=== PATIENT | male | born 1975 | race Caucasian/White ===

== ENCOUNTER 2020-06-02 14:45 | Inpatient (IN) | payer OTHER ==
[~2020-06-02 14:45] MED LIST: Iopamidol-370 76% 500 ML 1 ML ONE
[2020-06-02] MEDS ORDERED: Dexamethasone 10 MG/ML VIAL ONE (15:16)
--- NOTE | 2020-06-02 15:18 | RAD ---
EXAM: CHEST ONE VIEW HISTORY: Shortness of breath in a patient with Covid positive test. COMPARISON: None FINDINGS: Cardiac silhouette is magnified by projection. Pulmonary vasculature is within normal limits. There a re patchy parenchymal as well as interstitial opacities seen in the right upper lung zone, midlung zones, and at each lung base demonstrating a radiographic appearance which can be seen with Covid pne umonia. The osseous structures are intact. IMPRESSION: Covid pneumonia.
[2020-06-02 15:46] LABS: #Eosinphils 0.1 thou/uL (0.0-0.7); #Lymphocytes 1.5 thou/uL (1.20-3.40); #Monocytes 0.6 thou/uL (0.11-0.59); %Basophils 0.2 % (0.0-1.0); %Eosinophils 1.3 % (0.0-10.0); %Lymphocytes 16.3 % (21.0-51.0); %Monocytes 6.6 % (0.0-10.0); %Neutrophils 75.5 % (42.0-75.0); Hemoglobin 15.3 g/dL (14.0-18.0); Mean Corpuscular HGB CONC 33.2 g/dL (32.0-36.0); Mean Corpuscular Hemoglobin 29.8 pg (27.0-31.0); Mean Corpuscular Volume 89.8 fL (78.0-98.0); Mean Platelet Volume 8.7 fL (7.4-10.4); Platelet Count 269 thou/uL (130-400); RBC Distribution Width 11.8 % (11.5-14.5); Red Blood Cell (RBC) Count 5.13 mill/uL (4.70-6.10); White Blood Cell (WBC) Count 9.2 thou/uL (4.8-10.8)
[2020-06-02] MEDS ORDERED: cefTRIAXone\\ROCEPHIN 2 GM VIAL ONE (15:51)
[2020-06-02] MEDS ORDERED: Azithromycin 500 MG VIAL ONE (15:51)
[2020-06-02 15:53] LABS: PTT 25.9 sec (22.9-36.1); Prothrombin Time 12.9 sec (12.0-14.7)
[2020-06-02 16:15] LABS: ALT (SGPT) 116 U/L (8-55); AST (SGOT) 67 U/L (5-34); Albumin 3.7 g/dL (3.5-5.0); Alkaline Phosphatase 110 U/L (40-110); Anion Gap 17 mmol/L (10-20); BUN (Urea Nitrogen) 16 mg/dL (8.9-20.6); Calc. Creatinine Clearance 0 mL/min (70-130); Calcium 8.3 mg/dL (7.8-10.44); Carbon Dioxide 24 mmol/L (22-29); Chloride 104 mmol/L (98-107); Globulin 3.2 g/dL (2.4-3.5); Glucose 104 mg/dL (70-105); Lipase 32 U/L (8-78); Potassium 3.8 mmol/L (3.5-5.1); Protein, Total 6.9 g/dL (6.0-8.3); Sodium 141 mmol/L (136-145)
--- NOTE | 2020-06-02 18:08 | CT ---
CTA THORAX WITH CONTRAST: 06/02/20 (Computed Tomographic Angiography, chest(noncoronary) with contrast material, and image postprocessin g) (PE protocol) HISTORY: 44-year-old COVID-19 positive male with chest pain and dyspnea with fever and chills with productive cough. COMPARISON: None. TECHNIQUE: IV injection of iodinated contrast: Isovue Scan acquisition timing attempted to coincide with iodinated contrast bolus reaching maximal density in pulmonary arteries. 3D MIP reconstructions. FINDINGS: Large number of small and moderate sized patchy infiltrates consisting mostly of consolidations, thro ughout the bilateral upper lobes, lower lobes, and right middle lobe, both peripheral and central. In the intervening spaces between the consolidations, there are faint ground glass changes. No pleural effusion, pneumothorax, thoracic aortic aneurysm or dissection, or pericardial effusion. No pulmonary thromboembolism identified. IMPRESSION: 1. Moderately severe bilateral COVID-19 pneumonia. 2. No pulmonary thromboembolism identified. tj[] POS: JIN
--- NOTE | 2020-06-02 18:21 | PDOC.HHP ---
Hospitalist HPI SOB History of Present Illness: Mr. Bragg is a 44-year-old male with past medical history of hypertension who presents emergency room for shortness of breath. Patient reports he was diagnosed with Covid on May 24 and that is the same day his symptoms began. Patient reports his symptoms began with subjective fevers, cough, myalgias. Over the past 2 days he has noticed worsening shortness of breath. He denies chest pain, abdominal pain, nausea vomiting diarrhea. In emergency room initial vital signs 111/89, 89, 32, 99.0, 94% on 3 L nasal cannula. Chest x-ray showed bilateral multifocal pneumonia. WBC 9.2, H/H 15.3/46.1, platelet 269. BUN/CR 16/0.86, sodium 141, potassium 3.8, glucose 104. Initial troponin 0 010, lactic acid 1.2, lipase 32. Patient mild transaminitis. EKG showed normal sinus rhythm with PACs. Past History: PMHx: Hypertension PSHx: No surgical history FHx past family history of cardiac disease and patient's mother Social: Non-smoker, no alcohol or drug use Hospitalist HPI ROS Constitutional: reports: fever, weakness, malaise. denies: chills, sweats, other Eyes: denies: pain, vision change, conjunctivae inflammation, eyelid inflammation, redness, other ENT: denies: ear pain, ear discharge, nose pain, nose discharge, nose congestion, mouth pain, mouth swelling, throat pain, throat swelling, other Respiratory: reports: cough, shortness of breath, SOB with excertion. denies: dry, hemoptysis, pleuritic pain, sputum, wheezing, other Cardiovascular: denies: chest pain, palpitations, orthopnea, paroxysmal noc. dyspnea, edema, light headedness, other Gastrointestinal: denies: nausea, vomiting, abdominal pain, diarrhea, constipation, melena, hematochezia, other Genitourinary: denies: dysuria, frequency, incontinence, hematuria, retention, other Musculoskeletal: denies: neck pain, shoulder pain, arm pain, back pain, hand pain, leg pain, foot pain, other Skin: denies: rash, lesions, bethanie, bruising, other Neurological: denies: weakness, numbness, incoordination, change in speech, confusion, seizures, other Hospitalist Exam General Appearance: NAD, awake alert, ill appearing Eye: PERRL, anicteric sclera ENT: normocephalic atraumatic, no oropharyngeal lesions, moist mucosa Neck: supple, symmetric, no JVD, no thyromegaly, no lymphadenopathy, no carotid bruit Heart: RRR, no murmur, no gallops, no rubs, normal peripheral pulses Respiratory: CTAB, no wheezes, no rales, no ronchi, normal chest expansion, no tachypnea, normal percussion Gastrointestinal: soft, non-tender, non-distended, normal bowel sounds, no palpable masses, no hepatomegaly, no splenomegaly, no bruit Extremities: no cyanosis, no clubbing, no edema Skin: normal turgor, no lesions, no rashes Neurological: cranial nerve grossly intact, normal sensation to touch, no weakness, no focal deficits, no new deficit Musculoskeletal: normal tone, normal strength, no muscle wasting Psychiatric: normal affect, normal behavior, A&O x 3 Hospitalist Results Result Diagrams: 06/02/20 15:37 06/02/20 15:37 Lab results: Laboratory Last Values WBC 9.2 thou/uL (4.8-10.8) 06/02/20 15:37 RBC 5.13 mill/uL (4.70-6.10) 06/02/20 15:37 Hgb 15.3 g/dL (14.0-18.0) 06/02/20 15:37 Hct 46.1 % (42.0-52.0) 06/02/20 15:37 MCV 89.8 fL (78.0-98.0) 06/02/20 15:37 MCH 29.8 pg (27.0-31.0) 06/02/20 15:37 MCHC 33.2 g/dL (32.0-36.0) 06/02/20 15:37 RDW 11.8 % (11.5-14.5) 06/02/20 15:37 Plt Count 269 thou/uL (130-400) 06/02/20 15:37 MPV 8.7 fL (7.4-10.4) 06/02/20 15:37 Neutrophils % 75.5 % (42.0-75.0) H 06/02/20 15:37 Lymphocytes % 16.3 % (21.0-51.0) L 06/02/20 15:37 Monocytes % 6.6 % (0.0-10.0) 06/02/20 15:37 Eosinophils % 1.3 % (0.0-10.0) 06/02/20 15:37 Basophils % 0.2 % (0.0-1.0) 06/02/20 15:37 Neutrophils # 7.0 thou/uL (1.40-6.50) H 06/02/20 15:37 Lymphocytes # 1.5 thou/uL (1.20-3.40) 06/02/20 15:37 Monocytes # 0.6 thou/uL (0.11-0.59) H 06/02/20 15:37 Eosinophils # 0.1 thou/uL (0.0-0.7) 06/02/20 15:37 Basophils # 0.0 thou/uL (0.0-0.2) 06/02/20 15:37 PT 12.9 sec (12.0-14.7) 06/02/20 15:37 INR 1.0 06/02/20 15:37 APTT 25.9 sec (22.9-36.1) 06/02/20 15:37 Sodium 141 mmol/L (136-145) 06/02/20 15:37 Potassium 3.8 mmol/L (3.5-5.1) 06/02/20 15:37 Chloride 104 mmol/L (98-107) 06/02/20 15:37 Carbon Dioxide 24 mmol/L (22-29) 06/02/20 15:37 Anion Gap 17 mmol/L (10-20) 06/02/20 15:37 BUN 16 mg/dL (8.9-20.6) 06/02/20 15:37 Creatinine 0.86 mg/dL (0.7-1.3) 06/02/20 15:37 Estimated GFR (MDRD) Greater than 90 06/02/20 15:37 Glucose 104 mg/dL (70-105) 06/02/20 15:37 Lactic Acid 1.2 mmol/L (0.5-2.2) 06/02/20 15:37 Calcium 8.3 mg/dL (7.8-10.44) 06/02/20 15:37 Total Bilirubin 1.0 mg/dL (0.2-1.2) 06/02/20 15:37 AST 67 U/L (5-34) H 06/02/20 15:37 ALT 116 U/L (8-55) H 06/02/20 15:37 Alkaline Phosphatase 110 U/L (40-110) 06/02/20 15:37 Troponin I Less than 0.010 ng/mL (< 0.028) 06/02/20 15:37 Serum Total Protein 6.9 g/dL (6.0-8.3) 06/02/20 15:37 Albumin 3.7 g/dL (3.5-5.0) 06/02/20 15:37 Globulin 3.2 g/dL (2.4-3.5) 06/02/20 15:37 Albumin/Globulin Ratio 1.2 g/dL (1.2-2.2) 06/02/20 15:37 Lipase 32 U/L (8-78) 06/02/20 15:37 Hospitalist H&P A/P Plan: COVID-19 pneumonia 44-year-old male past medical history of hypertension initially diagnosed with Covid on 05/24/2019, symptoms started that same day with fevers chills myalgias. Patient over the past 2 days developed worsening shortness of breath now requiring 3 L nasal cannula to maintain oxygenation saturation. WBC 9.2, troponin 0 0.010, chest x-ray with bilateral multifocal pneumonia consistent with COVID-19 pneumonia. Patient received ceftriaxone, azithromycin, dexamethasone in emergency room. Will continue steroids, see if patient is candidate for remdesivir, and obtain baseline inflammatory markers. Plan -Decadron, will see patient is candidate for remdesivir -Ceftriaxone, azithromycin -Supplemental oxygen -Tylenol, Robitussin -Vitamin C, zinc -We will obtain baseline inflammatory markers Acute hypoxic respiratory failure Patient with acute hypoxic respiratory failure secondary to moderate to severe COVID-19 pneumonia. Patient with new oxygen requirement now on 3 L of oxygen nasal cannula to maintain O2 sat. We will continue supplemental oxygen and closely monitor respiratory status. Treatment as above. Plan -Supplemental oxygen -Treatment as above -Closely monitor respiratory status Hypertension History of hypertension patient reports he is prescribed lisinopril, however is noncompliant with this. Patient normotensive in emergency room. Will hold and restart as needed. DVT prophylaxisLovenox Full code Case discussed with attending physician, Dr. Streeter.
[2020-06-02] MEDS ORDERED: Acetaminophen 325 MG TAB PO PRN (18:27)
[2020-06-02] MEDS ORDERED: Ondansetron ODT 4 MG TAB PO PRN (18:27)
[2020-06-02] MEDS ORDERED: Ondansetron PF 4 MG/2 ML Vial IVP PRN (18:27)
[2020-06-02] MEDS ORDERED: Acetaminophen 650 MG Suppository PR PRN (18:27)
[2020-06-02] MEDS ORDERED: Guaifenesin DM 100-10/5 ML UDCUP PO PRN (18:27)
[2020-06-02] MEDS ORDERED: Loperamide HCl 2 MG CAP PO PRN ×2 (18:27)
[2020-06-02] MEDS ORDERED: Albuterol Sulfate 2.5 mg/3 ml Neb EZPAP PRN (18:28)
[2020-06-02] MEDS ORDERED: Ibuprofen 800 MG TAB PO PRN (18:29)
[2020-06-03 06:24] LABS: #Lymphocytes 1.4 thou/uL (1.20-3.40); #Monocytes 0.6 thou/uL (0.11-0.59); #Neutrophils 6.1 thou/uL (1.40-6.50); %Basophils 0.1 % (0.0-1.0); %Eosinophils 0.2 % (0.0-10.0); %Lymphocytes 16.9 % (21.0-51.0); %Monocytes 7.5 % (0.0-10.0); %Neutrophils 75.4 % (42.0-75.0); Hemoglobin 14.4 g/dL (14.0-18.0); Mean Corpuscular HGB CONC 34.4 g/dL (32.0-36.0); Mean Corpuscular Hemoglobin 31.6 pg (27.0-31.0); Mean Corpuscular Volume 91.9 fL (78.0-98.0); Mean Platelet Volume 8.8 fL (7.4-10.4); Platelet Count 251 thou/uL (130-400); RBC Distribution Width 11.6 % (11.5-14.5); Red Blood Cell (RBC) Count 4.57 mill/uL (4.70-6.10); White Blood Cell (WBC) Count 8.1 thou/uL (4.8-10.8)
[2020-06-03 06:48] LABS: Anion Gap 14 mmol/L (10-20); BUN (Urea Nitrogen) 14 mg/dL (8.9-20.6); Calc. Creatinine Clearance 182 mL/min (70-130); Calcium 8.5 mg/dL (7.8-10.44); Carbon Dioxide 26 mmol/L (22-29); Chloride 105 mmol/L (98-107); Glucose 115 mg/dL (70-105); Potassium 4.5 mmol/L (3.5-5.1); Sodium 140 mmol/L (136-145)
[2020-06-03] MEDS: Dexamethasone 4 MG TAB PO SCH (08:00)
[2020-06-03] MEDS: Zinc Sulfate 220 MG CAP PO SCH (08:00)
[2020-06-03] MEDS: Ascorbic Acid 500 mg Chewable Tablet PO SCH (08:00)
[2020-06-03] MEDS: Enoxaparin Sodium 40 MG/0.4 ML SYRINGE SC SCH (08:01)
[2020-06-03] MEDS ORDERED: FLU VACC QS2020-21(6MOS UP)/PF 60 MCG/0.5 ML SYRINGE IM ONE (09:00)
[2020-06-03 10:42] LABS: ALT (SGPT) 163 U/L (8-55); AST (SGOT) 85 U/L (5-34); Albumin 3.6 g/dL (3.5-5.0); Alkaline Phosphatase 102 U/L (40-110); Bilirubin, Direct 0.6 mg/dL (0.1-0.3); Protein, Total 7.3 g/dL (6.0-8.3)
--- NOTE | 2020-06-03 19:45 | PDOC.HOSPP ---
- Subjective Encounter Date: 06/03/20 Subjective: Patient reports she is feeling pretty well. Feels like he is better overall. Comfortable with his breathing. Has developed some diarrhea. - Objective Vital Signs & Weight: Vital Signs (12 hours) Temp Pulse Resp BP Pulse Ox 06/03/20 17:01 98.4 F 73 18 122/80 94 L 06/03/20 15:00 98.4 F 78 16 122/80 95 06/03/20 11:00 98.1 F 81 16 119/80 96 Weight Weight 286 lb 9.6 oz Result Diagrams: 06/03/20 05:56 06/03/20 05:56 Hospitalist ROS - Medication Medications: Active Medications Generic Name Dose Route Start Last Admin Trade Name Freq PRN Reason Stop Dose Admin Ascorbic Acid 1,000 mg 06/03/20 09:00 06/03/20 08:00 Ascorbic Acid 500 Mg Chewable Tablet PO 1,000 mg DAILY RAYMOND Administration Dexamethasone 6 mg 06/03/20 08:00 06/03/20 08:00 Dexamethasone 4 Mg Tab PO 6 mg QA- RAYMOND Administration Enoxaparin Sodium 40 mg 06/03/20 09:00 06/03/20 08:01 Enoxaparin Sodium 40 Mg/0.4 Ml Syringe SC 40 mg 0900 RAYMOND Administration Loperamide HCl 4 mg 06/02/20 18:27 06/03/20 10:57 Loperamide Hcl 2 Mg Cap PO 06/07/20 18:28 4 mg ONE PRN Administration Diarrhea/Loose Stools Zinc Sulfate 220 mg 06/03/20 09:00 06/03/20 08:00 Zinc Sulfate 220 Mg Cap PO 220 mg DAILY RAYMOND Administration Hospitalist Exam Vitals: Vital Signs (12 hours) Temp Pulse Resp BP Pulse Ox 06/03/20 17:01 98.4 F 73 18 122/80 94 L 06/03/20 15:00 98.4 F 78 16 122/80 95 06/03/20 11:00 98.1 F 81 16 119/80 96 Weight Weight 286 lb 9.6 oz General Appearance: NAD, awake alert Eye: PERRL Heart: RRR, no murmur, no gallops, no rubs, normal peripheral pulses Respiratory: CTAB, no wheezes, no rales, no ronchi, normal chest expansion, no tachypnea, normal percussion Gastrointestinal: soft, non-tender, non-distended, normal bowel sounds, no palpable masses, no hepatomegaly, no splenomegaly, no bruit Extremities: no cyanosis, no clubbing, no edema Neurological: no focal deficits Musculoskeletal: normal tone, normal strength, no muscle wasting Psychiatric: normal affect, normal behavior, A&O x 3 Hosp A/P (1) Acute respiratory failure with hypoxia Code(s): J96.01 - ACUTE RESPIRATORY FAILURE WITH HYPOXIA Status: Acute (2) Pneumonia due to COVID-19 virus Code(s): U07.1 - COVID-19; J12.82 - PNEUMONIA DUE TO CORONAVIRUS DISEASE 2018 Status: Acute (3) Diarrhea Code(s): R19.7 - DIARRHEA, UNSPECIFIED Status: Acute - Plan Acute hypoxic respiratory failure: Secondary to COVID-19 pneumonia. Patient seems to be stable on 3 L nasal cannula. COVID-19 pneumonia: Patient has modest hypoxia. Feeling generally better. Likely has diarrhea as a component of this infection. Discussed possible Remdesivir with the patient. Because he has some history of fatty liver disease and elevated LFTs he is likely not a good candidate. Continue dexamethasone. May be able to discharge as early as tomorrow if we can get him set up for home oxygen at 3 L. Diarrhea: Likely secondary to the COVID-19 pneumonia. History of fatty liver disease: Mild elevation of transaminases.
[2020-06-04 05:56] LABS: #Eosinphils 0.1 thou/uL (0.0-0.7); #Monocytes 0.8 thou/uL (0.11-0.59); %Basophils 0.2 % (0.0-1.0); %Eosinophils 0.5 % (0.0-10.0); %Lymphocytes 18.5 % (21.0-51.0); %Neutrophils 73.8 % (42.0-75.0); Hemoglobin 13.9 g/dL (14.0-18.0); Mean Corpuscular Hemoglobin 29.8 pg (27.0-31.0); Mean Corpuscular Volume 90.3 fL (78.0-98.0); Mean Platelet Volume 8.4 fL (7.4-10.4); Platelet Count 314 thou/uL (130-400); RBC Distribution Width 11.6 % (11.5-14.5); Red Blood Cell (RBC) Count 4.67 mill/uL (4.70-6.10); White Blood Cell (WBC) Count 10.8 thou/uL (4.8-10.8)
[2020-06-04 06:16] LABS: Anion Gap 12 mmol/L (10-20); BUN (Urea Nitrogen) 17 mg/dL (8.9-20.6); Calc. Creatinine Clearance 220 mL/min (70-130); Calcium 8.4 mg/dL (7.8-10.44); Carbon Dioxide 24 mmol/L (22-29); Chloride 107 mmol/L (98-107); Glucose 108 mg/dL (70-105); Potassium 3.9 mmol/L (3.5-5.1); Sodium 139 mmol/L (136-145)
[2020-06-04] MEDS: Dexamethasone 4 MG TAB PO SCH (07:58)
[2020-06-04] MEDS: Ascorbic Acid 500 mg Chewable Tablet PO SCH (07:58)
[2020-06-04] MEDS: Zinc Sulfate 220 MG CAP PO SCH (07:59)
[2020-06-04] MEDS: Enoxaparin Sodium 40 MG/0.4 ML SYRINGE SC SCH (07:59)
[2020-06-04 09:00] VITALS: BMI 35.7
--- NOTE | 2020-06-04 14:21 | PDOC.HOSPP ---
- Subjective Subjective: Patient was seen examined at bedside. Patient report that he is quite winded, when he went to the bathroom to take a shower. He remains on 3 L via nasal cannula. No fever. - Objective Vital Signs & Weight: Vital Signs (12 hours) Temp Pulse Resp BP Pulse Ox 06/04/20 07:26 98.2 F 77 17 116/73 93 L 06/04/20 04:00 98.1 F 72 18 116/79 93 L Weight Weight 286 lb Result Diagrams: 06/04/20 05:14 06/04/20 05:14 Radiology Reviewed by me: Yes Hospitalist ROS - Medication Medications: Active Medications Generic Name Dose Route Start Last Admin Trade Name Freq PRN Reason Stop Dose Admin Ascorbic Acid 1,000 mg 06/03/20 09:00 06/04/20 07:58 Ascorbic Acid 500 Mg Chewable Tablet PO 1,000 mg DAILY RAYMOND Administration Dexamethasone 6 mg 06/03/20 08:00 06/04/20 07:58 Dexamethasone 4 Mg Tab PO 6 mg QAM- RAYMOND Administration Enoxaparin Sodium 40 mg 06/03/20 09:00 06/04/20 07:59 Enoxaparin Sodium 40 Mg/0.4 Ml Syringe SC 40 mg 0900 RAYMOND Administration Loperamide HCl 4 mg 06/02/20 18:27 06/03/20 10:57 Loperamide Hcl 2 Mg Cap PO 06/07/20 18:28 4 mg ONE PRN Administration Diarrhea/Loose Stools Zinc Sulfate 220 mg 06/03/20 09:00 06/04/20 07:59 Zinc Sulfate 220 Mg Cap PO 220 mg DAILY RAYMOND Administration Hospitalist Exam Vitals: Vital Signs (12 hours) Temp Pulse Resp BP Pulse Ox 06/04/20 07:26 98.2 F 77 17 116/73 93 L 06/04/20 04:00 98.1 F 72 18 116/79 93 L Weight Weight 286 lb General Appearance: NAD Eye: PERRL ENT: normocephalic atraumatic Neck: supple Heart: RRR Respiratory: CTAB Gastrointestinal: soft Extremities: no cyanosis Skin: normal turgor Neurological: cranial nerve grossly intact Musculoskeletal: normal tone Hosp A/P - Plan (1) Acute respiratory failure with hypoxia Code(s): J96.01 - ACUTE RESPIRATORY FAILURE WITH HYPOXIA Status: Acute (2) Pneumonia due to COVID-19 virus Code(s): U07.1 - COVID-19; J12.82 - PNEUMONIA DUE TO CORONAVIRUS DISEASE 2019 Status: Acute (3) Diarrhea Code(s): R19.7 - DIARRHEA, UNSPECIFIED Status: Acute - Plan Patient is quite dyspneic with minimal exertion, however, he appeared to be stable on 3 L. Will consult case preparer and liner for home O2 arrangement. Continue Decadron, and ancillary treatments Possibly home tomorrow if his oxygen has arranged, and remains medically stable. Continue supportive cares
[2020-06-04] MEDS: guaiFENesin ER 600 MG TAB PO SCH (20:04)
[2020-06-05 07:57] VITALS: TEMP 98.3
[2020-06-05 08:10] LABS: #Eosinphils 0.1 thou/uL (0.0-0.7); #Lymphocytes 2.8 thou/uL (1.20-3.40); #Monocytes 0.8 thou/uL (0.11-0.59); #Neutrophils 9.7 thou/uL (1.40-6.50); %Basophils 0.2 % (0.0-1.0); %Eosinophils 0.7 % (0.0-10.0); %Neutrophils 72.1 % (42.0-75.0); Hemoglobin 14.3 g/dL (14.0-18.0); Mean Corpuscular HGB CONC 33.5 g/dL (32.0-36.0); Mean Corpuscular Hemoglobin 30.9 pg (27.0-31.0); Mean Corpuscular Volume 92.2 fL (78.0-98.0); Mean Platelet Volume 8.4 fL (7.4-10.4); Platelet Count 296 thou/uL (130-400); RBC Distribution Width 11.7 % (11.5-14.5); Red Blood Cell (RBC) Count 4.62 mill/uL (4.70-6.10); White Blood Cell (WBC) Count 13.4 thou/uL (4.8-10.8)
[2020-06-05 08:31] LABS: ALT (SGPT) 191 U/L (8-55); AST (SGOT) 49 U/L (5-34); Albumin 3.4 g/dL (3.5-5.0); Alkaline Phosphatase 84 U/L (40-110); Anion Gap 11 mmol/L (10-20); BUN (Urea Nitrogen) 17 mg/dL (8.9-20.6); Bilirubin, Total 0.7 mg/dL (0.2-1.2); Calc. Creatinine Clearance 184 mL/min (70-130); Calcium 8.4 mg/dL (7.8-10.44); Carbon Dioxide 28 mmol/L (22-29); Chloride 103 mmol/L (98-107); Globulin 3.3 g/dL (2.4-3.5); Glucose 90 mg/dL (70-105); Potassium 4.2 mmol/L (3.5-5.1); Protein, Total 6.7 g/dL (6.0-8.3); Sodium 138 mmol/L (136-145)
[2020-06-05] MEDS: Ascorbic Acid 500 mg Chewable Tablet PO SCH (08:32)
[2020-06-05] MEDS: Enoxaparin Sodium 40 MG/0.4 ML SYRINGE SC SCH (08:32)
[2020-06-05] MEDS: Zinc Sulfate 220 MG CAP PO SCH (08:32)
[2020-06-05] MEDS: guaiFENesin ER 600 MG TAB PO SCH (08:32)
[2020-06-05] MEDS: Dexamethasone 4 MG TAB PO SCH (08:32)
--- NOTE | 2020-06-05 11:15 | PDOC.HOSPP ---
- Subjective Subjective: pt was seen and examined, feeling better today, stable on 3L via nc, O2 around 92-94%. no fever - Objective Vital Signs & Weight: Vital Signs (12 hours) Temp Pulse Resp BP BP Pulse Ox 06/05/20 08:35 94 L 06/05/20 07:51 98.3 F 78 17 113/71 92 L 06/05/20 07:04 95 06/05/20 04:38 98.4 F 71 20 116/79 95 06/04/20 23:51 98.5 F 68 20 130/75 92 L Weight Weight 286 lb Result Diagrams: 06/05/20 07:33 06/05/20 07:33 Radiology Reviewed by me: Yes EKG Reviewed by me: Yes Hospitalist ROS - Medication Medications: Active Medications Generic Name Dose Route Start Last Admin Trade Name Freq PRN Reason Stop Dose Admin Ascorbic Acid 1,000 mg 06/03/20 09:00 06/05/20 08:32 Ascorbic Acid 500 Mg Chewable Tablet PO 1,000 mg DAILY RAYMOND Administration Dexamethasone 6 mg 06/03/20 08:00 06/05/20 08:32 Dexamethasone 4 Mg Tab PO 6 mg QAM-WM RAYMOND Administration Enoxaparin Sodium 40 mg 06/03/20 09:00 06/05/20 08:32 Enoxaparin Sodium 40 Mg/0.4 Ml Syringe SC 40 mg 0900 RAYMOND Administration Guaifenesin 1,200 mg 06/04/20 21:00 06/05/20 08:32 Guaifenesin Er 600 Mg Tab PO 1,200 mg Q12HR RAYMOND Administration Loperamide HCl 4 mg 06/02/20 18:27 06/03/20 10:57 Loperamide Hcl 2 Mg Cap PO 06/07/20 18:28 4 mg ONE PRN Administration Diarrhea/Loose Stools Zinc Sulfate 220 mg 06/03/20 09:00 06/05/20 08:32 Zinc Sulfate 220 Mg Cap PO 220 mg DAILY RAYMOND Administration Hospitalist Exam Vitals: Vital Signs (12 hours) Temp Pulse Resp BP BP Pulse Ox 06/05/20 08:35 94 L 06/05/20 07:51 98.3 F 78 17 113/71 92 L 06/05/20 07:04 95 06/05/20 04:38 98.4 F 71 20 116/79 95 06/04/20 23:51 98.5 F 68 20 130/75 92 L Weight Weight 286 lb General Appearance: NAD Eye: PERRL ENT: normocephalic atraumatic Neck: supple Heart: RRR Respiratory: CTAB Gastrointestinal: soft, non-tender Extremities: no cyanosis Skin: normal turgor Neurological: cranial nerve grossly intact Psychiatric: normal affect, normal behavior, A&O x 3 Hosp A/P - Plan (1) Acute respiratory failure with hypoxia Code(s): J96.01 - ACUTE RESPIRATORY FAILURE WITH HYPOXIA Status: Acute (2) Pneumonia due to COVID-19 virus Code(s): U07.1 - COVID-19; J12.82 - PNEUMONIA DUE TO CORONAVIRUS DISEASE 2019 Status: Acute (3) Diarrhea Code(s): R19.7 - DIARRHEA, UNSPECIFIED Status: Acute - Plan Pt is doing better today, stable on 3L Continue Decadron, and ancillary treatments CM consulted for Home 2 plan to d/c home when oxygen arranged.
--- NOTE | 2020-06-05 15:15 | PDOC.DS.DS ---
Provider Date of Admission: 06/02/20 18:04 Date of Discharge: 06/05/20 Admitting Provider: Hector Streeter MD Primary Care Physician: [facility] Course Hospital Course: The patient is very pleasant 44 years old gentleman who has significant past medical history of hypertension, who presented to ED with complaint of short of breath. He was diagnosed with COVID-19 infections on May 24, 2020, same day that his symptoms started. Over the past couple days, he noticed worsening short of breath. In the ED, he was satting 94% on 3 L. He was subsequently admitted to hospitalist service for further management. Patient was started on Decadron, empiric antibiotic, as well as vitamin C/D/zinc . His shortness of breath much improved. CTA of the chest on admission was negative for PE, showed moderate pneumonia consistent with COVID-19 infection. He maintains oxygen is well on 3 L. At this time, he had no fever. Symptom much improved. Patient is stable to discharge home with home O2, 3 L. Patient was advised to keep his oxygen is above 92%, and gradually wean him off of oxygen to room air as tolerated. He will be discharged home with 1 weeks of doxycycline, and taper steroid over the course of 10 days. He also discharged home with 2 weeks of Eliquis, low-dose 2.5 mg twice daily. Patient was advised to continue self quarantine for 1 more weeks. He was advised to return to ED if his symptom recurs or worsens. Follow-up with PCP in 1 to 2 weeks. Pertinent Studies: Chest x-ray: COVID-19 pneumonia CTA chest: No evidence of PE. Moderate severe bilateral COVID-19 pneumonia Procedures: None. Resuscitation Status: 06/02/20 18:27 Resuscitation Status Routine Co-Sign Provider: Resuscitation Status: FULL: Full Resuscitation Lab Results: 06/05/20 07:33 06/05/20 07:33 Abnormal Lab Results - Last 48 hrs 06/04/20 05:14: RBC 4.67 L, Hgb 13.9 L, Lymphocytes % 18.5 L, Neutrophils # 8.0 H, Monocytes # 0.8 H 06/05/20 07:33: AST 49 H, ALT 191 H, Albumin 3.4 L, Albumin/Globulin Ratio 1.0 L 06/05/20 07:33: WBC 13.4 H, RBC 4.62 L, Neutrophils # 9.7 H, Monocytes # 0.8 H 06/05/20 07:33: C-Reactive Protein 0.87 H Microbiology - Entire Visit 06/02/20 15:37 Venous blood - Left Arm Blood Culture - Preliminary NO GROWTH AT 48 HOURS 06/02/20 15:36 Venous blood - Right Hand Blood Culture - Preliminary NO GROWTH AT 48 HOURS Vitals: Vital Signs (12 hours) Temp Pulse Resp BP BP Pulse Ox 06/05/20 08:35 94 L 06/05/20 07:51 98.3 F 78 17 113/71 92 L 06/05/20 07:04 95 06/05/20 04:38 98.4 F 71 20 116/79 95 Weight Weight 286 lb Physical Exam: The patient was seen and examined on the day of discharge. Plan Prescriptions: Doxycycline Hyclate 100 mg PO Q12HR #14 tablet Apixaban [Eliquis] 2.5 mg PO BID #30 tab predniSONE 10 mg PO QAM-WM #30 tab Home Medications: Medication Instructions Recorded Confirmed Type Apixaban [Eliquis] 2.5 mg PO BID #30 tab 06/05/20 Rx Doxycycline Hyclate 100 mg PO Q12HR #14 tablet 06/05/20 Rx predniSONE 10 mg PO QAM-WM #30 tab 06/05/20 Rx Allergies: No Known Allergies Allergy (Unverified 06/02/20 21:38) Discharge Instructions:: Please continue to wean yourself off of oxygen, to maintain O2 sat above 92%. Complete the course of antibiotics as prescribed Complete the course of taper steroid as prescribed Follow-up with your PCP in 1 to 2 weeks. Please continue self quarantine for 1 more week. Return to ED if your symptom recurs or worsen. Activity:: Activity as Tolerated Nourishment:: Heart Healthy Diet Referrals: EVIN MARIN [facility] [Primary Care Provider] - Disposition: HOME Quality CORE MEASURES:: N/A
[2020-06-05 18:05] VITALS: BP 127/78
--- NOTE | 2020-06-11 21:58 | EKG ---
Test Reason : SOB Blood Pressure : / mmHG Vent. Rate : 082 BPM Atrial Rate : 082 BPM P-R Int : 148 ms QRS Dur : 086 ms QT Int : 384 ms P-R-T Axes : 033 011 039 degrees QTc Int : 448 ms Sinus rhythm with occasional Premature ventricular complexes Otherwise normal ECG Confirmed by BRAIN BONNER DO ([id number]), editorial specialist BOUCHRA GARCIA ([id number]) on 06/11/2020 9:58:07 PM Referred By: Confirmed By:BRAIN BONNER DO
== END 2020-06-05 17:53 | disposition home or self-care (01) | DRG 177 ==
LOC: ERS 14:45 → T4-B 18:04
PROVIDERS: ADMIT Internal Medicine; ATTEND Family Medicine
PROC: 8E0ZXY6 Isolation (ICD-10-PCS; principal; 2020-06-02)
DX: U07.1 COVID-19 (principal); J12.82 Pneumonia due to coronavirus disease 2019; J96.01 Acute respiratory failure with hypoxia; A08.39 Other viral enteritis; I10 Essential (primary) hypertension; K76.0 Fatty (change of) liver, not elsewhere classified; R74.01 Elevation of levels of liver transaminase levels; Z91.14 Patient's other noncompliance with medication regimen; Z79.899 Other long term (current) drug therapy; Z82.49 Family history of ischemic heart disease and other diseases of the circulatory system
CPT/HCPCS: 36415; 71045; 71275; 80048; 80053; 80076; 82728; 83605; 83690; 84484; 85025; 85610; 85730; 86140; 87040; 93005; 94760; 96365; 96367; 96375; J0456; J0696; J1100; J1650; J8540; Q9967